=== PATIENT | male | born 1960 | race Caucasian/White ===

== ENCOUNTER 2017-07-03 22:44 | Emergency (ER) | payer BC ==
--- NOTE | 2017-07-03 23:02 | EDM.PDOC ---
ED HPI GENERAL MEDICAL PROBLEM - General Chief Complaint: Genitourinary Problem Stated Complaint: ISSUES CATHETER Time Seen by Provider: 07/03/17 23:00 - History of Present Illness INITIAL COMMENTS - FREE TEXT/NARRATIVE: HISTORY AND PHYSICAL: History of present illness: Patient's 57-year-old male with history of neurogenic bladder and suprapubic catheter became dislodged he estimates this could've been as long as 6 hours is unclear no other complaints. Review of systems: As per history of present illness and below otherwise all systems reviewed and negative. Past medical history: As per history of present illness and as reviewed below otherwise noncontributory. Surgical history: As per history of present illness and as reviewed below otherwise noncontributory. Social history: No reported history of drug or alcohol abuse. Family history: As per history of present illness and as reviewed below otherwise noncontributory. Physical exam: HEENT: Atraumatic, normocephalic, pupils reactive, negative for conjunctival pallor or scleral icterus, mucous membranes moist, throat clear, neck supple, nontender, trachea midline. Lungs: Clear to auscultation, breath sounds equal bilaterally, chest nontender. Heart: S1S2, regular, negative for clicks, rubs, or JVD. Abdomen: Soft, nondistended, nontender. Negative for masses or hepatosplenomegaly. Negative for costovertebral tenderness. Pelvis: Stable nontender. Genitourinary: Deferred. Rectal: Deferred. Extremities: Atraumatic, negative for cords or calf pain. Neurovascular unremarkable. Neuro: Awake, alert, oriented. Cranial nerves II through XII unremarkable. Cerebellum unremarkable. Motor and sensory unremarkable throughout. Exam nonfocal. Diagnostics: None Therapeutics: Attempted reinsertion of suprapubic catheter was unsuccessful Bustos catheter was placed leg bag was attached. Impression: #1 suprapubic catheter dislodgment status post reinsertion Bustos catheter Definitive disposition and diagnosis as appropriate pending reevaluation and review of above. - Related Data Allergies Allergy/AdvReac Type Severity Reaction Status Date / Time No Known Allergies Allergy Verified 07/03/17 23:00 Home Meds: Home Meds Ibandronate Sodium [Boniva] 150 mg PO ASDIRECTED 06/20/14 [History] Omeprazole 20 mg PO DAILY 06/20/14 [History] Ramipril [Altace] 5 mg PO DAILY 06/20/14 [History] Rosuvastatin [Crestor] 20 mg PO BEDTIME 06/20/14 [History] Social & Family History - Tobacco Use Smoking Status *Q: Never Smoker - Alcohol Use Days Per Week of Alcohol Use: 0 - Recreational Drug Use Recreational Drug Use: No ED ROS GENERAL - Review of Systems Review Of Systems: ROS reveals no pertinent complaints other than HPI. ED EXAM, GENERAL - Physical Exam Exam: See Below (See dictation) Departure - Departure Time of Disposition: 23:01 Disposition: Home, Self-Care 01 Condition: Good Clinical Impression: Suprapubic catheter, Neurogenic bladder - Discharge Information Referrals: Srinivas Sirvastava MD [Primary Care Provider] - Additional Instructions: The following information is given to patients seen in the emergency department who are being discharged to home. This information is to outline your options for follow-up care. We provide all patients seen in our emergency department with a follow-up referral. The need for follow-up, as well as the timing and circumstances, are variable depending upon the specifics of your emergency department visit. If you don't have a primary care physician on staff, we will provide you with a referral. We always advise you to contact your personal physician following an emergency department visit to inform them of the circumstance of the visit and for follow-up with them and/or the need for any referrals to a consulting specialist. The emergency department will also refer you to a specialist when appropriate. This referral assures that you have the opportunity for followup care with a specialist. All of these measure are taken in an effort to provide you with optimal care, which includes your followup. Under all circumstances we always encourage you to contact your private physician who remains a resource for coordinating your care. When calling for followup care, please make the office aware that this follow-up is from your recent emergency room visit. If for any reason you are refused follow-up, please contact the [facility] emergency department at and asked to speak to the emergency department charge nurse. Follow-up private urologist as discussed called to schedule appointment return as needed as discussed
[2017-07-03 23:23] VITALS: BP 156/96
== END 2017-07-03 23:25 | disposition home or self-care (01) ==
LOC: MW.ED 22:44
DX: N31.9 Neuromuscular dysfunction of bladder, unspecified (principal); Z79.899 Other long term (current) drug therapy
CPT/HCPCS: 99281; 99283

== ENCOUNTER 2018-11-26 22:18 | Emergency (ER) | payer BC ==
--- NOTE | 2018-11-26 22:26 | EDM.PDOC ---
ED HPI GENERAL MEDICAL PROBLEM - General Chief Complaint: Genitourinary Problem Stated Complaint: CATH. COMPLAINT Time Seen by Provider: 11/26/18 22:20 Source of Information: Reports: Patient History Limitations: Reports: No Limitations - History of Present Illness INITIAL COMMENTS - FREE TEXT/NARRATIVE: HISTORY AND PHYSICAL: History of present illness: Patient is a 58-year-old male who presents to the emergency room with complaints of suprapubic catheter being dislodged. He states occasionally the balloon will deflate on its own and the catheter will be dislodged. He does follow closely with Dr. Guzman in [place] for neurogenic bladder. He offers no other concerns or complaints today other than requesting that the catheter be replaced. Patient denies any fever, chills, headache, change in vision, syncope or near syncope. Denies any chest pain, back pain, shortness of breath or cough. Denies any abdominal pain, nausea, vomiting, diarrhea, constipation or dysuria. Has not noted any blood in urine or stool. Patient has been eating and drinking appropriately. Review of systems: As per history of present illness and below otherwise all systems reviewed and negative. Past medical history: As per history of present illness and as reviewed below otherwise noncontributory. Surgical history: As per history of present illness and as reviewed below otherwise noncontributory. Social history: See social history for further information Family history: As per history of present illness and as reviewed below otherwise noncontributory. Physical exam: General: Well-developed and well-nourished 58-year-old male. Alert and oriented. Nontoxic appearing and in no acute distress. HEENT: Atraumatic, normocephalic, pupils equal and reactive bilaterally, negative for conjunctival pallor or scleral icterus, mucous membranes moist, trachea midline. No drooling or trismus noted. No meningeal signs. No hot potato voice noted. Lungs: Clear to auscultation, breath sounds equal bilaterally, chest nontender. Heart: S1S2, regular rate and rhythm without overt murmur Abdomen: Soft, nondistended, nontender. Suprapubic catheter site noted. Skin: Intact, warm, dry. No lesions or rashes noted. Extremities: Atraumatic, moves all extremities per self without difficulty or deficits, negative for cords or calf pain. Neurovascular unremarkable. Neuro: Awake, alert, oriented. Cranial nerves II through XII unremarkable. Cerebellum unremarkable. Motor and sensory unremarkable throughout. Exam nonfocal. Notes: 16 Greek catheter was placed without any difficulty. Was able to drain approximately 200 mL of urine. Patient states he has an appointment with his urologist in a week and a half. He declines the need for any further workup at this time. Supportive care measures were reviewed and discussed. Voices understanding and is agreeable to plan of care. Denies any further questions or concerns at this time. Diagnostics: None Therapeutics: Suprapubic Catheter Replacement Prescription: None Impression: Suprapubic Catheter Complication History of neurogenetic bladder Plan: 1. Follow up with Dr Guzman as you already have directed 2. Return to the ED as needed as discussed. Definitive disposition and diagnosis as appropriate pending reevaluation and review of above. - Related Data Allergies Allergy/AdvReac Type Severity Reaction Status Date / Time No Known Allergies Allergy Verified 07/03/17 23:00 Home Meds: Home Meds Ibandronate Sodium [Boniva] 150 mg PO ASDIRECTED 06/20/14 [History] Omeprazole 20 mg PO DAILY 06/20/14 [History] Ramipril [Altace] 10 mg PO DAILY 06/20/14 [History] Rosuvastatin [Crestor] 20 mg PO BEDTIME 06/20/14 [History] Past Medical History Cardiovascular History: Reports: Hypertension Genitourinary History: Reports: Neurogenic Bladder Musculoskeletal History: Reports: Osteoarthritis, Osteoporosis - Past Surgical History HEENT Surgical History: Reports: Tonsillectomy GI Surgical History: Reports: Hernia Repair/Other Male Surgical History: Reports: Suprapubic Catheter Placement Musculoskeletal Surgical History: Reports: Other (See Below) Other Musculoskeletal Surgeries/Procedures:: hip tendon release, bunion surgery , RTC repair, R shoulder biceps tenodesis, R reverse TSA Social & Family History - Family History Family Medical History: Noncontributory ED ROS GENERAL - Review of Systems Review Of Systems: ROS reveals no pertinent complaints other than HPI. ED EXAM, RENAL/ - Physical Exam Exam: See Below (See dictation) Departure - Departure Time of Disposition: 22:40 Disposition: Home, Self-Care 01 Clinical Impression: Neurogenic bladder, Encounter for suprapubic catheter care - Discharge Information Referrals: PCP,Unknown [Primary Care Provider] - Forms: ED Department Discharge Additional Instructions: The following information is given to patients seen in the emergency department who are being discharged to home. This information is to outline your options for follow-up care. We provide all patients seen in our emergency department with a follow-up referral. The need for follow-up, as well as the timing and circumstances, are variable depending upon the specifics of your emergency department visit. If you don't have a primary care physician on staff, we will provide you with a referral. We always advise you to contact your personal physician following an emergency department visit to inform them of the circumstance of the visit and for follow-up with them and/or the need for any referrals to a consulting specialist. The emergency department will also refer you to a specialist when appropriate. This referral assures that you have the opportunity for follow-up care with a specialist. All of these measure are taken in an effort to provide you with optimal care, which includes your follow-up. Under all circumstances we always encourage you to contact your private physician who remains a resource for coordinating your care. When calling for follow-up care, please make the office aware that this follow-up is from your recent emergency room visit. If for any reason you are refused follow-up, please contact the [facility] Emergency Department at and asked to speak to the emergency department charge nurse. [facility] [address] [place] [id number] Guzman as you already have arranged Return to the ED as needed and as discussed.
[2018-11-26 22:52] VITALS: BP 175/106; PULSE 102
== END 2018-11-26 23:14 | disposition home or self-care (01) ==
LOC: MW.ED 22:18
DX: T83.028A Displacement of other urinary catheter, initial encounter (principal); N31.9 Neuromuscular dysfunction of bladder, unspecified
CPT/HCPCS: 99282; 99283

== ENCOUNTER 2019-01-16 15:44 | Emergency (ER) | payer BC ==
--- NOTE | 2019-01-16 16:12 | EDM.PDOC ---
ED HPI GENERAL MEDICAL PROBLEM - General Chief Complaint: Genitourinary Problem Stated Complaint: CATHETER Time Seen by Provider: 01/16/19 16:09 Source of Information: Reports: Patient History Limitations: Reports: No Limitations - History of Present Illness INITIAL COMMENTS - FREE TEXT/NARRATIVE: HISTORY AND PHYSICAL: History of present illness: Patient is a 59-year-old male who presents to the emergency room with complaints of his suprapubic catheter balloon deflating. Patient has a long- standing history of a suprapubic catheter due to a neurogenic bladder. He states he gets his catheter changed every few months. He states over the past few times he has had some problems with the balloon deflating and needing to come to the emergency room for replacement. He offers no other concerns or complaints at this time. Review of systems: As per history of present illness and below otherwise all systems reviewed and negative. Past medical history: As per history of present illness and as reviewed below otherwise noncontributory. Surgical history: As per history of present illness and as reviewed below otherwise noncontributory. Social history: See social history for further information Family history: As per history of present illness and as reviewed below otherwise noncontributory. Physical exam: General: Well-developed and well nourished 59-year-old male. Alert and oriented. Nontoxic appearing and in no acute distress. HEENT: Atraumatic, normocephalic, pupils equal and reactive bilaterally, negative for conjunctival pallor or scleral icterus, mucous membranes moist, trachea midline. No drooling or trismus noted. No meningeal signs. No hot potato voice noted. Lungs: Clear to auscultation, breath sounds equal bilaterally. Heart: S1S2, regular rate and rhythm without overt murmur Abdomen: Soft, nondistended, nontender. Negative for masses. Negative for costovertebral tenderness. Pelvis: Stable nontender. Suprapubic Bustos stoma site WNL. Skin: Intact, warm, dry. No lesions or rashes noted. Extremities: Atraumatic, moves all extremities per self without difficulty or deficits, negative for cords or calf pain. Neurovascular unremarkable. Neuro: Awake, alert, oriented. Cranial nerves II through XII unremarkable. Cerebellum unremarkable. Motor and sensory unremarkable throughout. Exam nonfocal. Notes: Usual and customary procedures were followed for suprapubic catheter placement. Supportive care measures were reviewed and discussed. Voices understanding and is agreeable to plan of care. Denies any further questions or concerns at this time. Diagnostics: None Therapeutics: Suprapubic catheter placement Prescription: None Impression: Suprapubic catheter replacement Plan: 1. Continue to monitor urinary output and catheter site 2. Follow up with your primary care provider as discussed. Return to the ED as needed as discussed. Definitive disposition and diagnosis as appropriate pending reevaluation and review of above. - Related Data Allergies Allergy/AdvReac Type Severity Reaction Status Date / Time No Known Allergies Allergy Verified 01/16/19 16:14 Home Meds: Home Meds Ibandronate Sodium [Boniva] 150 mg PO ASDIRECTED 06/20/14 [History] Omeprazole 20 mg PO DAILY 06/20/14 [History] Ramipril [Altace] 10 mg PO DAILY 06/20/14 [History] Rosuvastatin [Crestor] 20 mg PO BEDTIME 06/20/14 [History] Past Medical History Cardiovascular History: Reports: Hypertension Genitourinary History: Reports: Neurogenic Bladder Musculoskeletal History: Reports: Osteoarthritis, Osteoporosis - Infectious Disease History Infectious Disease History: Reports: Chicken Pox, Shingles - Past Surgical History HEENT Surgical History: Reports: Tonsillectomy GI Surgical History: Reports: Hernia Repair/Other Male Surgical History: Reports: Suprapubic Catheter Placement Musculoskeletal Surgical History: Reports: Other (See Below) Other Musculoskeletal Surgeries/Procedures:: hip tendon release, bunion surgery , RTC repair, R shoulder biceps tenodesis, R reverse TSA Social & Family History - Family History Family Medical History: Noncontributory - Caffeine Use Caffeine Use: Reports: Coffee ED ROS GENERAL - Review of Systems Review Of Systems: Comprehensive ROS is negative, except as noted in HPI. ED EXAM, RENAL/ - Physical Exam Exam: See Below (See dictation) Course - Vital Signs Last Recorded V/S: Last Vital Signs Temp 96.9 F 01/16/19 16:14 Pulse 110 H 01/16/19 16:14 Resp 18 01/16/19 16:14 BP 167/111 H 01/16/19 16:14 Pulse Ox 96 01/16/19 16:14 Departure - Departure Time of Disposition: 16:12 Disposition: Home, Self-Care 01 Clinical Impression: Encounter for suprapubic catheter care - Discharge Information Referrals: Srinivas Srivastava MD [Primary Care Provider] - Forms: ED Department Discharge Additional Instructions: The following information is given to patients seen in the emergency department who are being discharged to home. This information is to outline your options for follow-up care. We provide all patients seen in our emergency department with a follow-up referral. The need for follow-up, as well as the timing and circumstances, are variable depending upon the specifics of your emergency department visit. If you don't have a primary care physician on staff, we will provide you with a referral. We always advise you to contact your personal physician following an emergency department visit to inform them of the circumstance of the visit and for follow-up with them and/or the need for any referrals to a consulting specialist. The emergency department will also refer you to a specialist when appropriate. This referral assures that you have the opportunity for follow-up care with a specialist. All of these measure are taken in an effort to provide you with optimal care, which includes your follow-up. Under all circumstances we always encourage you to contact your private physician who remains a resource for coordinating your care. When calling for follow-up care, please make the office aware that this follow-up is from your recent emergency room visit. If for any reason you are refused follow-up, please contact the [facility] Emergency Department at and asked to speak to the emergency department charge nurse. [facility] [address] [place] [id number] [address] 1. Continue to monitor urinary output and catheter site 2. Follow up with your primary care provider as discussed. Return to the ED as needed as discussed.
[2019-01-16 17:00] VITALS: BP 164/118; PULSE 99
== END 2019-01-16 16:49 | disposition home or self-care (01) ==
LOC: MW.ED 15:44
DX: Z46.6 Encounter for fitting and adjustment of urinary device (principal)
CPT/HCPCS: 51705; 99282; 99283-25

== ENCOUNTER 2019-06-17 15:10 | Emergency (ER) | payer BC ==
--- NOTE | 2019-06-17 15:43 | EDM.PDOC ---
ED HPI GENERAL MEDICAL PROBLEM - General Chief Complaint: Genitourinary Problem Stated Complaint: CATHETER FELL OUT Time Seen by Provider: 06/17/19 15:11 Source of Information: Reports: Patient History Limitations: Reports: No Limitations - History of Present Illness INITIAL COMMENTS - FREE TEXT/NARRATIVE: HPI: 59-year-old male with suprapubic catheter presents with dislodged 16 ethiopian suprapubic catheter 50 minutes prior to arrival. He denies fever, chills , nausea, vomiting, abdominal pain. He was walking and noticed that there was urine leaking, and when he checked, the catheter had fallen out. He denies any other symptoms. ROS: A 10-point review of systems, other than pertinent positives and negatives as stated per HPI, is otherwise negative PAST MEDICAL HISTORY: no additional pertinent history. PAST SURGICAL HISTORY: no additional pertinent history. SOCIAL HISTORY: no additional pertinent history. FAMILY HISTORY: no additional pertinent information. Physical Exam General: AOx4, GCS = 15, No distress HEENT: dry mucous membrane Neck: supple, no meningismus, no Kernig or Brudzinski Cardiac: S1S2 tachycardia Respiratory: CTAB, no crackles or rales, no wheezing Abdomen: Soft, nontender, no rebound or guarding, nondistended, no pulsatile mass. Patent suprapubic stoma. No surrounding erythema. Back: nontender Musculoskeletal: NVI distally, no deformity Neuro: No focal deficits ED COURSE 1535: 16 ethiopian suprapubic catheter reinserted by RN with no complications. 1615: After catheter reinsertion, he improved clinically and is stable for discharge. I performed a repeat examination and the patient has not demonstrated any new abnormal findings. Patient exhibits normal vital signs after resting in the ER, and has exhibited a normal gait. I advised the patient to return to the ER for reevaluation if symptoms worsened, and to follow up with their PCP within 2-3 days. MDM: I reviewed the patients past medical records, lab and radiographic findings. I discussed the case with family members. My differential diagnosis included: Dislodged suprapubic catheter. Patient has no physical symptoms otherwise, I do not suspect need for further work-up. 16 Indian catheter was replaced with no complications. Clinical Impression: 1. Dislodged suprapubic catheter. - Related Data Allergies Allergy/AdvReac Type Severity Reaction Status Date / Time No Known Allergies Allergy Verified 06/17/19 15:19 Home Meds: Home Meds Ibandronate Sodium [Boniva] 150 mg PO ASDIRECTED 06/20/14 [History] Omeprazole 20 mg PO DAILY 06/20/14 [History] Rosuvastatin [Crestor] 20 mg PO BEDTIME 06/20/14 [History] ramipriL [Altace] 10 mg PO DAILY 06/20/14 [History] Past Medical History HEENT History: Reports: None Cardiovascular History: Reports: Hypertension Respiratory History: Reports: None Gastrointestinal History: Reports: None Genitourinary History: Reports: Neurogenic Bladder Musculoskeletal History: Reports: Osteoarthritis, Osteoporosis Neurological History: Reports: None Psychiatric History: Reports: None Endocrine/Metabolic History: Reports: None Hematologic History: Reports: None Immunologic History: Reports: None Oncologic (Cancer) History: Reports: None Dermatologic History: Reports: None - Infectious Disease History Infectious Disease History: Reports: None - Past Surgical History Head Surgeries/Procedures: Reports: None HEENT Surgical History: Reports: Tonsillectomy Cardiovascular Surgical History: Reports: None Respiratory Surgical History: Reports: None GI Surgical History: Reports: Hernia Repair/Other Male Surgical History: Reports: Suprapubic Catheter Placement Endocrine Surgical History: Reports: None Neurological Surgical History: Reports: None Musculoskeletal Surgical History: Reports: Other (See Below) Other Musculoskeletal Surgeries/Procedures:: hip tendon release, bunion surgery , RTC repair, R shoulder biceps tenodesis, R reverse TSA Oncologic Surgical History: Reports: None Dermatological Surgical History: Reports: None Social & Family History - Family History Family Medical History: Noncontributory - Tobacco Use Smoking Status *Q: Never Smoker Second Hand Smoke Exposure: No - Caffeine Use Caffeine Use: Reports: None - Recreational Drug Use Recreational Drug Use: No ED ROS GENERAL - Review of Systems Review Of Systems: See Below ED EXAM, RENAL/ - Physical Exam Exam: See Below Course - Vital Signs Last Recorded V/S: Last Vital Signs Temp 96.3 F L 06/17/19 15:19 Pulse 106 H 06/17/19 16:12 Resp 18 06/17/19 16:12 BP 151/106 H 06/17/19 16:12 Pulse Ox 95 06/17/19 16:12 - Orders/Labs/Meds Orders: Active Orders 24 hr Category Date Time Status Communication Order [RC] STAT Care 06/17/19 15:32 Active Insert Bustos Catheter [Insert Urinary Catheter] [OM.PC] Care 06/17/19 16:00 Ordered Q24H Urinary Catheter Assessment [RC] ASDIRECTED Care 06/17/19 15:46 Active Departure - Departure Time of Disposition: 16:17 Disposition: Home, Self-Care 01 Condition: Good Clinical Impression: Dislodged Bustos catheter - Discharge Information Instructions: Indwelling Urinary Catheter Care, Adult Referrals: Srinivas Srivastava MD [Primary Care Provider] - Forms: ED Department Discharge Additional Instructions: The following information is given to patients seen in the emergency department who are being discharged to home. This information is to outline your options for follow-up care. We provide all patients seen in our emergency department with a follow-up referral. The need for follow-up, as well as the timing and circumstances, are variable depending upon the specifics of your emergency department visit. If you don't have a primary care physician on staff, we will provide you with a referral. We always advise you to contact your personal physician following an emergency department visit to inform them of the circumstance of the visit and for follow-up with them and/or the need for any referrals to a consulting specialist. The emergency department will also refer you to a specialist when appropriate. This referral assures that you have the opportunity for follow-up care with a specialist. All of these measure are taken in an effort to provide you with optimal care, which includes your follow-up. Under all circumstances we always encourage you to contact your private physician who remains a resource for coordinating your care. When calling for follow-up care, please make the office aware that this follow-up is from your recent emergency room visit. If for any reason you are refused follow-up, please contact the [facility] Emergency Department at and asked to speak to the emergency department charge nurse. Sepsis Event Note - Evaluation Sepsis Screening Result: No Definite Risk - Focused Exam Vital Signs: Vital Signs Temp Pulse Resp BP Pulse Ox 06/17/19 16:12 106 H 18 151/106 H 95 06/17/19 15:19 96.3 F L 133 H 18 185/120 H 95 Date Exam was Performed: 06/17/19 Time Exam was Performed: 16:17 - My Orders Last 24 Hours: My Active Orders 06/17/19 15:32 Communication Order [RC] STAT 06/17/19 15:46 Urinary Catheter Assessment [RC] ASDIRECTED 06/17/19 16:00 Insert Bustos Catheter [Insert Urinary Catheter] [OM.PC] Q24H - Assessment/Plan Last 24 Hours: My Active Orders 06/17/19 15:32 Communication Order [RC] STAT 06/17/19 15:46 Urinary Catheter Assessment [RC] ASDIRECTED 06/17/19 16:00 Insert Bustos Catheter [Insert Urinary Catheter] [OM.PC] Q24H
[2019-06-17 16:13] VITALS: BP 151/106; PULSE 106
== END 2019-06-17 16:25 | disposition home or self-care (01) ==
LOC: MW.ED 15:10
DX: T83.021A Displacement of indwelling urethral catheter, initial encounter (principal); I10 Essential (primary) hypertension; Z79.899 Other long term (current) drug therapy
CPT/HCPCS: 51705; 99283-25